=== PATIENT | female | born 1970 | race Caucasian/White ===

== ENCOUNTER 2020-07-12 19:03 | Emergency (ER) | payer BC, SELFPAY ==
[2020-07-12] VITALS (17 sets, daily range): BP systolic 92–152; BP diastolic 51–68; PULSE 75–88; RESP 11–22; TEMP 36.8; O2SAT 91–98; BMI 22.6
[2020-07-12 19:39] LABS: Bacteria Urine None Seen
[2020-07-12 19:50] LABS: Amorphous Sediment Urine 1+; Culture Indicated Urine Cult Not Indicated; RBC Urine 0-1/HPF (0-5/HPF); WBC Urine 0-1/HPF (0-5/HPF)
--- NOTE | 2020-07-12 19:55 | ED_ITS ---
HPI - General Adult General Chief complaint: Abdominal Pain Stated complaint: Severe pain in stomach Time Seen by Provider: 07/12/20 19:15 Source: patient Mode of arrival: Family Vehicle Limitations: no limitations History of Present Illness HPI narrative: 49-year-old female who states that approximately 1 year ago had an episode of diverticulitis. She was treated with antibiotics and she states things improved. Has not had a colonoscopy since then. States that yesterday she was not feeling well. Woke up today feeling bloated. Had a bowel movement today the did not change or pain. No blood in her stool. No urinary symptoms. Some nausea no vomiting. She states it does feel like prior episode of diver ticulitis. 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 Related Data Previous Rx's Medication Instructions Recorded ciprofloxacin HCl 500 mg PO BID 10 Days #20 tab 07/12/20 metronidazole [Flagyl] 500 mg PO TID 10 Days #30 tab 07/12/20 Allergies Allergy/AdvReac Type Severity Reaction Status Date / Time No Known Drug Allergies Allergy Verified 07/12/20 19:16 Review of Systems Constitutional Constitutional: Denies fever(s) and Denies headache(s) ENT Ears, Nose, Mouth, and Throat: Denies headache(s) Cardiovascular Cardiovascular: Denies chest pain and Denies dyspnea Respiratory Respiratory: Denies dyspnea Gastrointestinal Gastrointestinal: Reports abdominal pain, Denies change in bowel habits, Reports nausea and Denies vomiting Genitourinary Genitourinary: Denies dysuria Genitourinary: Denies dysuria Musculoskeletal Musculoskeletal: Denies arthralgias and Denies myalgias Integumentary/Breasts Skin/Breast: Denies lesions and Denies rash Neurologic Neurologic: Denies behavioral changes and Denies headache(s) Psychiatric Psychiatric: Denies behavioral changes Hematologic/Lymphatic Hematologic/Lymphatic: Denies easy bleeding and Denies easy bruising Allergic/Immunologic Allergic/Immunologic: Denies urticaria Patient History Medical History Diverticulitis Social History Smoking Status: Former smoker Smoking Status: Former smoker alcohol intake frequency: 0-2 drinks per day Substance Use Type: does not use Exam Initial Vital Signs Initial Vital Signs: Vital Signs Temperature 98.3 F 07/12/20 19:11 Pulse Rate 88 07/12/20 19:11 Respiratory Rate 18 07/12/20 19:11 Blood Pressure 152/68 H 07/12/20 19:11 Pulse Oximetry 98 07/12/20 19:11 Const General: cooperative and comfortable Limitations: mental status not altered HENMT Head: normal to inspection and normocephalic Resp Effort & Inspection: normal respiratory effort Cardio Rate: regular rate GI Inspection: non-distended Palpation: soft and tender Skin Lesions: no lesions Rashes: no rashes Neuro General: patient alert and patient awake Cognition: normal cognition Speech: speech normal Extrem General: capillary refill normal Psych Appearance: grossly normal and well kempt Course Orders Ordered: ED Orders 07/12/20 19:18 EKG-12 Lead Stat 07/12/20 19:25 Urine Microscopic Stat 07/12/20 19:55 CT abdomen pelvis w con Stat 07/12/20 20:07 Complete Blood Count AUTO DIFF Stat Comprehensive Metabolic Panel Stat Lipase Stat Partial Thromboplastin Time Stat Prothrombin Time INR Stat Discontinued Medications Hydrocodone Bitart/Acetaminophen (Hydrocodone/Acet 5/325 Prepack) 1 bottle MISC SEEINSTR ONE Stop: 07/12/20 23:15 Last Admin: 07/12/20 23:19 Dose: 1 bottle Documented by: RMARTIN Hydromorphone HCl (Hydromorphone 1 Mg Inj) 1 mg IV NOW ONE Stop: 07/12/20 19:56 Last Admin: 07/12/20 20:13 Dose: 1 mg Documented by: RMARTIN Hydromorphone HCl (Hydromorphone 0.5 Mg Inj) 0.5 mg IV NOW ONE Stop: 07/12/20 22:19 Last Admin: 07/12/20 22:20 Dose: 0.5 mg Documented by: RMARTIN Metronidazole (Flagyl) 500 mg in 100 mls @ 100 mls/hr IV NOW ONE Stop: 07/12/20 20:54 Last Infusion: 07/12/20 21:45 Dose: 0 mls/hr Documented by: Admin: 07/12/20 20:14 Dose: 100 mls/hr Documented by: RMARTIN Ciprofloxacin (Cipro) 400 mg in 200 mls @ 200 mls/hr IV NOW TITO Last Infusion: 07/12/20 23:05 Dose: 0 mls/hr Documented by: Admin: 07/12/20 21:52 Dose: 200 mls/hr Documented by: FERDINAND Sodium Chloride (Normal Saline 0.9%) 1,000 mls @ 1,000 mls/hr IV BOLUS ONE Stop: 07/12/20 20:58 Last Infusion: 07/12/20 23:05 Dose: 0 mls/hr Documented by: Admin: 07/12/20 20:15 Dose: 1,000 mls/hr Documented by: FERDINAND Ondansetron HCl (Ondansetron 4 Mg Odt Prepack) 1 bottle MISC SEEINSTR ONE Stop: 07/12/20 23:15 Last Admin: 07/12/20 23:19 Dose: 1 bottle Documented by: FERDINAND Vital Signs Vital signs: Vital Signs - 8 hr 07/12/20 19:11 07/12/20 20:10 07/12/20 20:22 Temperature 98.3 F Pulse Rate 88 78 79 Respiratory Rate 18 Blood Pressure 152/68 H 104/57 L Pulse Oximetry 98 95 98 07/12/20 20:30 07/12/20 21:00 07/12/20 21:05 Temperature Pulse Rate 76 83 80 Respiratory Rate 13 Blood Pressure 104/58 L 102/58 L Pulse Oximetry 92 95 96 07/12/20 21:15 07/12/20 21:30 07/12/20 21:32 Temperature Pulse Rate 77 79 81 Respiratory Rate 16 15 22 Blood Pressure 95/54 L Pulse Oximetry 94 95 95 07/12/20 21:34 07/12/20 21:45 07/12/20 22:00 Temperature Pulse Rate 80 80 80 Respiratory Rate 15 16 12 Blood Pressure 95/54 L 92/51 L Pulse Oximetry 94 93 94 07/12/20 22:15 07/12/20 22:24 07/12/20 22:30 Temperature Pulse Rate 83 81 76 Respiratory Rate 18 11 L Blood Pressure 103/56 L Pulse Oximetry 96 96 91 07/12/20 22:45 07/12/20 23:00 Temperature Pulse Rate 77 75 Respiratory Rate 14 15 Blood Pressure 94/52 L Pulse Oximetry 93 91 Medical Decision Making Medical Records Medical records reviewed: Yes I reviewed the patient's medical records. Lab Data Lab results reviewed: Yes I reviewed the patient's lab results. Result diagrams: 07/12/20 20:07 07/12/20 20:07 Labs: Lab Results 07/12/20 07/12/20 07/12/20 Range/Units 19:25 20:07 20:07 WBC 11.2 H (4.5-11.0) X10^3/uL RBC 4.23 (4.0-5.2) X10^6/uL Hgb 12.6 (12.0-16.0) g/dL Hct 38.3 (36-46) % MCV 90.5 (80-100) fL MCH 29.8 (26-34) PG MCHC 32.9 (30-36) % RDW 13.4 (11.6-14.8) % Plt Count 230 (150-400) X10^3/uL Neut % (Auto) 75.9 H (50-75) % Lymph % (Auto) 12.6 L (25-40) % [place] % (Auto) 10.6 (3-14) % Eos % (Auto) 0.4 L (2-4) % Baso % (Auto) 0.5 (0-2) % Neut # (Auto) 8500 H (2683-9630) /uL Lymph # (Auto) 1400 (6966-7352) /uL [place] # (Auto) 1200 H (0-900) /uL Eos # (Auto) 0 (0-450) /uL Baso # (Auto) 100 (0-100) /uL PT 12.5 (10.1-12.7) SECONDS INR 1.1 (0.9-1.3) APTT 28 (26.4-36.2) SECONDS Sodium (137-145) mmol/L Potassium (3.4-5.1) mmol/L Chloride (98-107) mmol/L Carbon Dioxide (22-32) mmol/L BUN (7-17) mg/dL Creatinine (0.52-1.04) mg/dL Estimated GFR (>60) mL/min BUN/Creatinine Ratio (6-22) Glucose (70-100) mg/dL Calcium (8.4-10.2) mg/dL Total Bilirubin (0.2-1.3) mg/dL AST (14-36) IU/L ALT (<35) IU/L Alkaline Phosphatase (38-126) U/L Total Protein (6.3-8.2) g/dL Albumin (3.5-5.0) g/dL Globulin (1.7-4.1) g/dL Albumin/Globulin Ratio (1.0-2.8) Lipase (23-300) U/L Urine RBC 0-1/hpf (0-5/HPF) Urine WBC 0-1/hpf (0-5/HPF) Amorphous Sediment 1+ Urine Bacteria None seen (None) Ur Culture Indicated? Cult not indicated 07/12/20 Range/Units 20:07 WBC (4.5-11.0) X10^3/uL RBC (4.0-5.2) X10^6/uL Hgb (12.0-16.0) g/dL Hct (36-46) % MCV (80-100) fL MCH (26-34) PG MCHC (30-36) % RDW (11.6-14.8) % Plt Count (150-400) X10^3/uL Neut % (Auto) (50-75) % Lymph % (Auto) (25-40) % [place]ett % (Auto) (3-14) % Eos % (Auto) (2-4) % Baso % (Auto) (0-2) % Neut # (Auto) (2859-7908) /uL Lymph # (Auto) (7953-6343) /uL [place]ett # (Auto) (0-900) /uL Eos # (Auto) (0-450) /uL Baso # (Auto) (0-100) /uL PT (10.1-12.7) SECONDS INR (0.9-1.3) APTT (26.4-36.2) SECONDS Sodium 134 L (137-145) mmol/L Potassium 3.6 (3.4-5.1) mmol/L Chloride 103 (98-107) mmol/L Carbon Dioxide 23 (22-32) mmol/L BUN 22 H (7-17) mg/dL Creatinine 0.72 (0.52-1.04) mg/dL Estimated GFR > 60.0 (>60) mL/min BUN/Creatinine Ratio 30.6 H (6-22) Glucose 111 H (70-100) mg/dL Calcium 9.4 (8.4-10.2) mg/dL Total Bilirubin 0.8 (0.2-1.3) mg/dL AST 96 H (14-36) IU/L ALT 68 H (<35) IU/L Alkaline Phosphatase 80 (38-126) U/L Total Protein 6.9 (6.3-8.2) g/dL Albumin 4.2 (3.5-5.0) g/dL Globulin 2.7 (1.7-4.1) g/dL Albumin/Globulin Ratio 1.6 (1.0-2.8) Lipase 41 (23-300) U/L Urine RBC (0-5/HPF) Urine WBC (0-5/HPF) Amorphous Sediment Urine Bacteria (None) Ur Culture Indicated? Urine Dip Bedside Urine Glucose Negative Bedside Urine Bilirubin - Negative Bedside Urine Ketone +/- 5 Urine Specific [place] 1.025 Bedside Urine Occult Blood + Bedside Urine Protein +/- 15 Bedside Urine Urobilinogen - Negative Bedside Urine Nitrite - Negative Bedside Urine Leukocytes - Negative Esterase Point of care testing: Urine Dip Bedside Urine Glucose Negative Bedside Urine Bilirubin - Negative Bedside Urine Ketone +/- 5 Urine Specific [place] 1.025 Bedside Urine Occult Blood + Bedside Urine Protein +/- 15 Bedside Urine Urobilinogen - Negative Bedside Urine Nitrite - Negative Bedside Urine Leukocytes - Negative Esterase Imaging Data CT scan - abdomen/pelvis: Radiologist's Impression: [address] [id number] Scan ReportSigned Patient: Rosemary Garland LMR#: [id number]: [id number]:[id number]/Sex: 49 / FDate of Service: 07/12/20Loc: EDAccession Number: [id number] Procedure: CT abdomen pelvis w con Ordering Provider: Alan Souza D.O. PROCEDURE: CT ABDOMEN PELVIS W CON INDICATIONS: Left-sided abdominal pain TECHNIQUE: After the administration of intravenous contrast, 5 mm thick sections acquired from the diaphragm to the symphysis. 5 mm coronal and sagittal reformats were acquired. For radiation dose reduction, the following was used: automated exposure control, adjustment of mA and/or kV according to patient size. COMPARISON: None. FINDINGS: Image quality: Excellent. ABDOMEN: Lung bases: Lung bases are clear. Heart size is normal. Bilateral breast implants. Solid organs: Liver is normal in size and enhancement. Gallbladder is normal. Biliary system is mildly dilated. Common bile duct measures up to 10 mm in diameter. No common bile duct stones. Pancreas enhances normally. Spleen is normal in size and enhancement. No adrenal nodules. Kidneys demonstrate normal size and enhancement, without hydronephrosis. There is a 9 mm nodule in the anterior cortex of the left kidney demonstrating fatty attenuation, compatible with a small angiomyolipoma. Peritoneum and bowel: Postsurgical changes in stomach. There are scattered colonic diverticula. There is short segment thickening of sigmoid colon. Bowel loops demonstrate normal caliber. No free air. A small amount of free fluid is present. Nodes and vessels: No retroperitoneal or mesenteric adenopathy by size criteria. Aorta and inferior vena cava are normal in size. Miscellaneous: No ventral hernias. PELVIS: Genitourinary: Bladder wall thickness is normal. Uterus is unremarkable. There is a 2.4 cm cyst in left ovary. A trace amount of free fluid is present in the pelvis. Miscellaneous: No inguinal hernias or adenopathy. Bones: No suspicious bony lesions. No vertebral body compression fractures. IMPRESSION: 1. Colonic diverticulosis. There is segmental thickening of sigmoid colon. Differential diagnoses include diverticulitis versus colon cancer. Recommend follow-up colonoscopy after adequate treatment of acute infection/inflammation. 2. There is a 2.4 cm left ovarian cyst, most likely a dominant ovarian follicle. 3. A small amount of free fluid is present, which is nonspecific. No free air to suggest viscus perforation. 4. 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 5. Postsurgical changes in stomach. Dictated by: Ibis Guajardo M.D. on 07/12/2020 at 21:06 Approved by: Ibis Guajardo M.D. on 07/12/2020 at 21:23 [facility] Narrative Medical decision making narrative: Patient's CT scan shows diverticulitis with out signs of perforations or abscess. Patient received IV antibiotics here in the ER. No indication for surgical consultation. Will send home with a prescription for antibiotics. Was given pain and nausea medicine. Discuss the findings of the CT scan with patient and her . They were given return precautions. They expressed understanding and agreement. Discharge Plan Departure Patient Disposition: Home Clinical Impression: Diverticulitis Instructions: DI for Diverticulitis Activity Restrictions/Additional Instructions: Your prescriptions were electronically transmitted to [facility] in [place]. Contact your primary provider for a follow-up. Return to emergency department for any new or worsening symptoms Prescriptions: New ciprofloxacin HCl 500 mg tablet 500 mg PO BID 10 Days Qty: 20 RF: 0 metronidazole [Flagyl] 500 mg tablet 500 mg PO TID 10 Days Qty: 30 RF: 0
[2020-07-12] MEDS: HYDROMORPHONE 1 MG INJ IV (20:13)
[2020-07-12 20:14] LABS: Add Manual Diff / Slide Review NO; Basophils Absolute Auto 100 /uL (0-100); Basophils Percent Auto 0.5 % (0-2); Eosinophils Absolute Auto 0 /uL (0-450); Eosinophils Percent Auto 0.4 % (2-4); Hematocrit 38.3 % (36-46); Hemoglobin 12.6 g/dL (12.0-16.0); Lymphocytes Absolute Auto 1400 /uL (1100-4500); Lymphocytes Percent Auto 12.6 % (25-40); Mean Corpuscular HGB Conc 32.9 % (30-36); Mean Corpuscular Hemoglobin 29.8 PG (26-34); Mean Corpuscular Volume 90.5 fL (80-100); Monocytes Absolute Auto 1200 /uL (0-900); Monocytes Percent Auto 10.6 % (3-14); Neutrophils Absolute Auto 8500 /uL (1500-7000); Neutrophils Percent Auto 75.9 % (50-75); Platelet Count 230 X10^3/uL (150-400); Red Blood Cell Count 4.23 X10^6/uL (4.0-5.2); Red Cell Distribution Width 13.4 % (11.6-14.8); White Blood Cell Count 11.2 X10^3/uL (4.5-11.0)
[2020-07-12] MEDS: metroNIDAZOLE 500 MG/100 ML PIGGYBACK 100 MG IV (20:14)
[2020-07-12] MEDS: SODIUM CHLORIDE 0.9% 1,000 ML 1000 ML IV (20:15)
[2020-07-12 20:29] LABS: INR 1.1 (0.9-1.3); Prothrombin Time 12.5 SECONDS (10.1-12.7)
[2020-07-12 20:32] LABS: PTT Partial Thromboplastin Tim 28 SECONDS (26.4-36.2)
[2020-07-12 20:33] LABS: Alanine Aminotransferase 68 IU/L (<35); Albumin 4.2 g/dL (3.5-5.0); Albumin Globulin Ratio 1.6 (1.0-2.8); Alkaline Phosphatase 80 U/L (38-126); Aspartate Aminotransferase 96 IU/L (14-36); BUN Creatinine Ratio 30.6 (6-22); Bilirubin Total 0.8 mg/dL (0.2-1.3); Blood Urea Nitrogen 22 mg/dL (7-17); Calcium 9.4 mg/dL (8.4-10.2); Carbon Dioxide 23 mmol/L (22-32); Chloride 103 mmol/L (98-107); Estimated Glomerular Filt Rate > 60.0 mL/min (>60); Globulin 2.7 g/dL (1.7-4.1); Glucose 111 mg/dL (70-100); HEMOLYSIS < 15 (0-50); Lipase 41 U/L (23-300); Potassium 3.6 mmol/L (3.4-5.1); Sodium 134 mmol/L (137-145); Total Protein 6.9 g/dL (6.3-8.2)
[2020-07-12] MEDS: CIPROFLOXACIN 400 MG/200 ML PIGGYBACK 200 MG IV (21:52)
[2020-07-12] MEDS: HYDROMORPHONE 0.5 MG INJ IV (22:20)
[2020-07-12] MEDS: HYDROCODONE/ACET 5/325 PREPACK 1 BOTTLE MISC (23:19)
[2020-07-12] MEDS: ONDANSETRON 4 MG ODT PREPACK 1 BOTTLE MISC (23:19)
== END 2020-07-12 23:26 | disposition home or self-care (01) ==
PROVIDERS: Emergency Provider Emergency Medicine
DX: K57.92 Diverticulitis of intestine, part unspecified, without perforation or abscess without bleeding (principal)
CPT/HCPCS: 36415; 74177; 80053; 81003; 81015; 83690; 85025; 85610; 85730; 93005; 96365; 96366; 96367; 96375; 96376; 99283; 99284; J0744; J1170; Q9967